=== PATIENT | male | born 1980 | race Caucasian/White ===

== ENCOUNTER 2019-10-11 17:03 | Emergency (ER) | payer OTHER ==
[2019-10-11] MEDS ORDERED: DIPHTH,PERTUSS(ACELL),TET 0.5 ML DISP.SYRIN IM ONE ×2 (17:13→17:21)
--- NOTE | 2019-10-11 17:13 | PDOC ---
Rapid Medical Evaluation Time Seen by Provider: 10/11/19 17:11 Medical Evaluation: 10/11/19 17:12 I performed a brief in-person evaluation of this patient. 39 y/o male, [employer] employee with a skin tear to the right forearm. Unknown last tetanus. Has history of asthma. Pertinent physical exam findings: abrasion to the dorsum of the right forearm I have ordered the following: boostrix Patient to proceed to ED for further evaluation. Discharge Disposition - Diagnosis Abrasion - Referrals Referrals: Alex Bryan [Primary Care Provider] - - Patient Instructions - Post Discharge Activity
[2019-10-11 17:16] VITALS: BP 136/90; PULSE 77; TEMP 98.3
--- NOTE | 2019-10-11 17:26 | PDOC ---
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 Patient does not recall last tetanus vaccine. Denies any other symptoms Timing/Duration: reports: just prior to arrival Past History - Medical History Allergies/Adverse Reactions: Allergies Allergy/AdvReac Type Severity Reaction Status Date / Time No Known Allergies Allergy Unverified 10/11/19 17:15 Asthma: Yes COPD: No - Psycho-Social/Smoking History Smoking History: Never smoked Have you smoked in the past 12 months: No Information on smoking cessation initiated: No - Substance Abuse Hx (Audit-C & DAST Scrn) How often the patient has a drink containing alcohol: Never Score: In Men: 4 or > Positive; In Women: 3 or > Positive: 0 Screen Result (Pos requires Nsg. Audit-10AR): Negative In the last yr the pt used illegal drug/Rx for NonMed reason: No Score: Yes response is considered Positive: 0 Screen Result (Positive result requires Nsg. DAST-10): Negative Review of Systems - Review of Systems Able to Perform ROS?: Yes Is the patient limited Slovak proficient: No Constitutional: No: Chills, Fever, Malaise HEENTM: No: Symptoms Reported, See HPI, Eye Pain, Blurred Vision, Tearing, Recent change in vision, Double Vision, Cataracts, Ear Pain, Ocular Prothesis, Ear Discharge, Nose Pain, Nose Congestion, Tinnitus, Nose Bleeding, Hearing Loss, Throat Pain, Throat Swelling, Mouth Pain, Dental Problems, Difficulty Sw allowing, Mouth Swelling, Other Respiratory: No: Symptoms reported, See HPI, Cough, Orthopnea, Shortness of Breath, SOB with Exertion, SOB at Rest, Stridor, Wheezing, Productive cough, Hemoptysis, Other Cardiac (ROS): No: Symptoms Reported ABD/GI: No: Symptoms Reported Musculoskeletal: No: Symptoms Reported Integumentary: Yes: Symptoms Reported, See HPI, Other (Superficial abrasion to right forearm) Neurological: No: Numbness, Paresthesia, Tingling All Other Systems: Reviewed and Negative *Physical Exam - Vital Signs Last Vital Signs Temp Pulse Resp BP Pulse Ox 98.3 F 77 16 136/90 100 10/11/19 17:12 10/11/19 17:12 10/11/19 17:12 10/11/19 17:12 10/11/19 17:12 - Physical Exam General Appearance: Yes: Nourished, Appropriately Dressed. No: Apparent Distress HEENT: positive: Normal ENT Inspection Neck: positive: Supple Respiratory/Chest: negative: Respiratory Distress, Accessory Muscle Use Musculoskeletal: positive: Normal Inspection Extremity: positive: Normal Capillary Refill, Normal Inspection Integumentary: positive: Normal Color, Other (Superficial 2 cm linear laceration only through skin to proximal lateral aspect of right forearm with no bleeding. 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 Patient does not recall last tetanus vaccine. Denies any other symptoms Exam significant for 2 cm superficial linear laceration to lateral aspect of right forearm with no bleeding. Wound cleaned with Betadine and skin covered with Dermabond to approximate skin. Wound covered adhesive bandage. Tetanus vaccine given by nurse. Patient tolerated procedure well and patient stable for discharge to use topical bacitracin twice daily to help with healing and prevent infection. Discharge - Discharge Information Problems reviewed: Yes Clinical Impression/Diagnosis: Abrasion Condition: Stable Disposition: HOME - Admission No - Follow up/Referral Referrals: Alex Bryan [Primary Care Provider] - - Patient Discharge Instructions Patient Printed Discharge Instructions: DI for Abrasion Additional Instructions: Keep area clean and dry for the next 24 hours. Apply bacitracin given to wound twice a day until fully healed. You were given tetanus vaccine today which should be good for 10 years. Follow-up with your primary care as needed - Post Discharge Activity
== END 2019-10-11 17:30 | disposition home or self-care (01) ==
LOC: JERFT 17:03 → JER 17:03 → JERFT 17:30
PROC: 0HQDXZZ Repair Right Lower Arm Skin, External Approach (ICD-10-PCS; principal; 2019-10-11)
PROC: 3E0234Z Introduction of Serum, Toxoid and Vaccine into Muscle, Percutaneous Approach (ICD-10-PCS; principal; 2019-10-11)
DX: S50.811A Abrasion of right forearm, initial encounter (principal); W22.8XXA Striking against or struck by other objects, initial encounter
CPT/HCPCS: 90715; 99282-25

== ENCOUNTER 2022-11-30 03:08 | Emergency (ER) | payer OTHER ==
[2022-11-30 03:23] VITALS: BP 137/80; PULSE 82; RESP 20; TEMP 97.8
== END 2022-11-30 04:12 | disposition home or self-care (01) ==
LOC: JER 03:08
DX: M71.331 Other bursal cyst, right wrist (principal)
CPT/HCPCS: 73110-TC-RT-FY; 99283-25